=== PATIENT | female | born 1945 | race Caucasian/White ===

== ENCOUNTER 2019-08-28 10:06 | Day surgery (SDC) | payer MEDICARE, BC ==
[~2019-08-28 10:06] MED LIST: Propofol 200 MG/20 ML SDV ONE; Sodium Chloride 0.9% 10 ML Syringe FLUSH PRN
--- NOTE | 2019-08-28 11:04 | PCM.HPR ---
H & P Addendum review - H & P Addendum Review Date of Original H & P: 08/04/19 Date Reviewed: 08/28/19 Time Reviewed: 11:04 Patient was Examined: No Changes
[2019-08-28] MEDS: Lactated Ringers 1,000 ML IV SCH (11:09)
[2019-08-28] MEDS ORDERED: Propofol 200 MG/20 ML SDV ONE (11:14)
--- NOTE | 2019-08-28 11:47 | PCM.OPNOTE ---
- General Post-Op/Procedure Note Date of Surgery/Procedure: 08/28/19 Operative Procedure(s): Colonoscopy Findings: Normal Pre Op Diagnosis: Hx Polyps Post-Op Diagnosis: Same Anesthesia Technique: WENCESLAO Primary Surgeon: Jassi Rodríguez Anesthesia Provider: Amna Travis Complications: None Condition: Good
--- NOTE | 2019-08-29 09:34 | OR ---
Date of Procedure: 08/28/2019 PREOPERATIVE DIAGNOSIS: History of colon polyps. POSTOPERATIVE DIAGNOSIS: Normal colonoscopy. PROCEDURE: Colonoscopy. ANESTHESIA: IV sedation. DESCRIPTION OF PROCEDURE: The patient was brought to the procedure room where she was placed on her left side and IV sedation administered. Digital rectal exam was performed which was normal. Colonoscope was inserted and advanced to the level of the cecum with difficulty getting through the ascending colon, requiring pressure on the abdomen and changing to the supine position. I was able to reach the cecum which was confirmed by identifying the appendiceal lumen and ileocecal valve. Prep was good and surfaces were well visualized. Upon withdrawing the scope, the ascending, transverse, and descending colon were normal in appearance. Sigmoid colon and rectum were normal. Retroflexion was normal. Air was removed and the scope withdrawn. The patient tolerated the procedure well and returned to recovery in stable condition. No further colon screenings are necessary due to patient's age. RAUL WEISS MD /[id number]
== END 2019-08-28 13:00 | disposition home or self-care (01) ==
LOC: LL.SDS 10:06
PROVIDERS: ATTEND Surgery
DX: Z12.11 Encounter for screening for malignant neoplasm of colon (principal); I10 Essential (primary) hypertension; E78.5 Hyperlipidemia, unspecified; F17.200 Nicotine dependence, unspecified, uncomplicated; M19.90 Unspecified osteoarthritis, unspecified site; Z88.7 Allergy status to serum and vaccine; Z88.8 Allergy status to other drugs, medicaments and biological substances; Z86.010 Personal history of colon polyps; Z79.82 Long term (current) use of aspirin; Z79.899 Other long term (current) drug therapy
CPT/HCPCS: J2704; J7120